=== PATIENT | female | born 1975 ===

== ENCOUNTER 2018-08-26 08:35 | Emergency (ER) | payer OTHER ==
[~2018-08-26] VITALS: Ht 149.9 cm; Wt 49.9 kg
[~2018-08-26 08:35] MED LIST: MEDROLPACK PO; SYNTHROID100 MCG; ZYRTEC10 M3 PO
[2018-08-26] MEDS ORDERED: BENADRYL25 MG (09:10)
== END 2018-08-26 11:45 | disposition home or self-care (01) ==
LOC: ER 08:35
DX: L50.8 Other urticaria (principal)

== ENCOUNTER 2018-08-27 20:50 | Emergency (ER) | payer OTHER ==
[~2018-08-27] VITALS: Ht 149.9 cm; Wt 49.9 kg
[~2018-08-27 20:50] MED LIST changes: +BENADRYL25 MG
== END 2018-08-27 21:46 | disposition home or self-care (01) ==
LOC: ER 20:50
DX: T50.995A Adverse effect of other drugs, medicaments and biological substances, initial encounter (principal); Y92.89 Other specified places as the place of occurrence of the external cause

== ENCOUNTER 2018-10-26 13:42 | Outpatient (CLI) | payer OTHER | END 2018-10-26 14:07 | disposition home or self-care (01) | LOC: RAD 13:42 | DX: J20.8 Acute bronchitis due to other specified organisms (principal) ==

== ENCOUNTER 2018-10-29 08:41 | Emergency (ER) | payer OTHER ==
[~2018-10-29] VITALS: Ht 165.1 cm; Wt 54.4 kg
[2018-10-29] MEDS ORDERED: [UNRECOGNIZED DRUG - OTHER] (09:01)
[2018-10-29] MEDS ORDERED: LEVALBUTER0.31 MG/3 IH (09:02)
== END 2018-10-29 14:21 | disposition home or self-care (01) ==
LOC: ER 08:41
DX: R05 Cough (principal)

== ENCOUNTER 2022-08-27 10:03 | Outpatient (CLI) | payer OTHER ==
[~2022-08-27 10:03] MED LIST changes: +LEVALBUTER0.31 MG/3 IH; +[UNRECOGNIZED DRUG - OTHER]
== END 2022-08-27 10:30 | disposition home or self-care (01) ==
LOC: RAD 10:03
PROVIDERS: ATTEND Physical Medicine & Rehabilitation
DX: M54.17 Radiculopathy, lumbosacral region (principal)